=== PATIENT | female | born 1975 | race African-American/Black ===

== ENCOUNTER 2018-11-01 08:52 | Inpatient (IN) | payer BC, OTHER ==
[2018-10-31 17:37] VITALS: BMI 37.5
--- NOTE | 2018-11-01 08:43 | HP ---
History & Physical Update - History History: No Change (no change since visit on 10/26/18) - Physical Physical: No Change - Assessment Assessment: No Change - Plan Plan: No Change (no change since visit on)
[2018-11-01] MEDS ORDERED: ROPIVACAINE HCL 0.5% 30ML VIAL ONE (08:56)
[2018-11-01] MEDS ORDERED: MIDAZOLAM HCL 2 MG/2 ML SINGLE DOSE VIAL ONE ×2 (08:57)
[2018-11-01] MEDS ORDERED: CEFAZOLIN 2 GM/D5W 2 GM/50 ML ML IVPB ONE (09:15)
[2018-11-01] MEDS ORDERED: PHENAZOPYRIDINE HCL 100 MG TABLET (FP) PO ONE (09:15)
[2018-11-01 09:33] LABS: HEMATOCRIT 38.7 % (32.4-45.2); MCH 27.8 pg (25.7-33.7); MCHC 33.6 g/dl (32.0-36.0); MEAN CELL VOLUME 82.8 fl (80-96); MEAN PLT VOLUME 8.6 fl (7.5-11.1); PLATELET COUNT 382 K/MM3 (134-434); RBC 4.68 M/mm3 (3.60-5.2); RDW 15.6 % (11.6-15.6); WHITE BLOOD COUNT 4.5 K/mm3 (4.0-10.0)
[2018-11-01 09:39] LABS: HCG,QUALITATIVE URINE Negative
[2018-11-01 09:47] LABS: INR 1.06 (0.83-1.09); PROTHROMBIN TIME (PATIENT) 12.5 SEC (9.7-13.0)
[2018-11-01 09:57] LABS: ALK PHOS 88 U/L (45-117); ANION GAP 5 MMOL/L (8-16); BILIRUBIN,TOTAL 0.3 mg/dL (0.2-1); BLOOD UREA NITROGEN 15 mg/dL (7-18); CALCIUM 9.2 mg/dL (8.5-10.1); CHLORIDE 111 mmol/L (98-107); CO2 27 mmol/L (21-32); GLUCOSE,RANDOM 93 mg/dL (74-106); POTASSIUM 4.1 mmol/L (3.5-5.1); SGOT/AST 22 U/L (15-37); SGPT/ALT 26 U/L (13-61); SODIUM 142 mmol/L (136-145); TOT PROT 7.6 g/dl (6.4-8.2); URINE APPEARANCE CLEAR; URINE BILIRUBIN NEGATIVE (<2.0 mg/dL); URINE COLOR LTYELLOW; URINE GLUCOSE (UA) NEGATIVE (NEGATIVE); URINE KETONE NEGATIVE (NEGATIVE); URINE LEUK ESTERASE NEGATIVE (NEGATIVE); URINE NITRITE NEGATIVE (NEGATIVE); URINE PROTEIN NEGATIVE (NEGATIVE); URINE UROBILINOGEN NEGATIVE mg/dL (0.2-1.0)
[2018-11-01 10:11] LABS: EPI CELLS RARE /HPF (FEW); URINE MUCUS RARE
[2018-11-01] MEDS ORDERED: PHENAZOPYRIDINE HCL 100 MG TABLET (FP) ONE (10:16)
[2018-11-01] MEDS ORDERED: ceFAZolin SODIUM 1 GM VIAL ONE (10:16)
[2018-11-01] MEDS ORDERED: HEPARIN NA (PORCINE) 5,000 UNITS/ML 1ML VIAL ONE (10:17)
[2018-11-01] MEDS ORDERED: LIDOCAINE HCL/PF 2% SDV 5ML VIAL ONE (11:25)
[2018-11-01] MEDS ORDERED: fentaNYL CITRATE 250 MCG/5 ML VIAL ONE (11:26)
[2018-11-01] MEDS ORDERED: ROCURONIUM BROMIDE 50 MG/5 ML VIAL ONE ×2 (11:27→12:47)
[2018-11-01] MEDS ORDERED: PROPOFOL 20 ML ONE ×2 (11:27)
[2018-11-01] MEDS ORDERED: ceFAZolin SODIUM 1 GM VIAL IVPB ONE (11:35)
[2018-11-01] MEDS ORDERED: DEXAMETHASONE SOD PHOSPHATE 4 MG/1 ML VIAL ONE (11:55)
[2018-11-01] MEDS ORDERED: GLYCOPYRROLATE 0.2 MG/1 ML VIAL ONE (12:17)
[2018-11-01] MEDS ORDERED: NEOSTIGMINE METHYLSULFATE 0.5 MG/ML - 10 ML MDV ONE (12:17)
[2018-11-01] MEDS ORDERED: BENZOIN TINCTURE SWABSTICK TP ONE (14:05)
[2018-11-01] MEDS ORDERED: KETOROLAC TROMETHAMINE 30 MG/1 ML VIAL ONE (14:12)
[2018-11-01] MEDS ORDERED: DOCUSATE SODIUM 100 MG CAPSULE (FP) PO PRN (14:21)
[2018-11-01] MEDS ORDERED: BISACODYL 5 MG TABLET.DR (FP) PO PRN (14:21)
[2018-11-01] MEDS ORDERED: oxyCODONE HCL 5 MG TABLET PO PRN ×2 (14:21)
[2018-11-01] MEDS ORDERED: ONDANSETRON 4 MG/2 ML VIAL IVPUSH PRN (14:21)
[2018-11-01] MEDS ORDERED: SIMETHICONE 80 MG TAB.CHEW (FP) PO PRN (14:21)
[2018-11-01] MEDS: SODIUM CHLORIDE 1,000 ML IV SCH ×2 (14:35→18:07)
[2018-11-01] MEDS ORDERED: HYDROmorphone HCl 2 MG/ML VIAL IVPB PRN (14:39)
[2018-11-01] MEDS ORDERED: LACTATED RINGERS SOLUTION 1,000 ML IV SCH (14:45)
--- NOTE | 2018-11-01 14:45 | OP ---
Operative Note - Note: Operative Date: 11/01/18 Pre-Operative Diagnosis: leiomyoma uterus. pelvic pain Operation: Abdominal hysterectomy with partial cervical preservation, RSO, lysis of adhesions, LS, excision of keloid Post-Operative Diagnosis: Same as Pre-op Surgeon: Chilo Reyes Nut Threader: Meaghan Blanco Anesthesiologist/PLANT PROPAGATOR: Amy Carter Anesthesia: General, Local (tap block) Specimens Removed: uterus, right fallopian tube, right ovary, left fallopian tube, keloid Estimated Blood Loss (mls): 650 (255 returned Cell saver) Drains, Volume Out (mls): 150 (chand) Fluid Volume Replaced (mls): 1,800 Operative Report Dictated: Yes
--- NOTE | 2018-11-01 14:46 | SURG ---
Surgery Bag Machine Operator Helper Note Bag Machine Operator Helper: Meaghan Blanco PA-C Date of Service: 11/01/18 Diagnosis: leiomyoma uterus, pelvic pain Procedure: Abdominal hysterectomy with partial cervical preservation, RSO, lysis of adhesions, LS, excision of keloid I was present for the entirety of the operative procedure. For further detail, please refer to operative report. Visit type - Case Type Case Type: Scheduled - Emergency Emergency Visit: No - New patient This patient is new to me today: Yes Date on this admission: 11/01/18
[2018-11-01] MEDS: ACETAMINOPHEN 1000 MG/100 ML VIAL (NON FORMULARY) IVPB SCH ×2 (14:50→21:35)
[2018-11-01] MEDS ORDERED: ACETAMINOPHEN INJECTION 100 ML IVPB ONE (14:52)
[2018-11-01] MEDS ORDERED: KETOROLAC TROMETHAMINE 30 MG/1 ML VIAL IVPUSH SCH (15:00)
--- NOTE | 2018-11-01 15:31 | OP ---
DATE OF OPERATION: PREOPERATIVE DIAGNOSES: 1. Large, growing, symptomatic, uterine leiomyomata. 2. Pelvic pain. 3. Suspecting adhesions and scar tissue. POSTOPERATIVE DIAGNOSES: 1. Large, growing, symptomatic, uterine leiomyomata. 2. Pelvic pain. 3. Suspecting adhesions and scar tissue, confirmed. 4. Endometriosis. SURGEON: Chilo Reyes MD FABRIC SEPARATOR OPERATOR: BRI [place] ANESTHESIA: General, TAP block. OPERATION: 1. Abdominal hysterectomy with partial cervical preservation. 2. Right salpingo-oophorectomy. 3. Left salpingectomy. 4. Lysis of extensive adhesions and old scar tissue. 5. Excision of keloid. INTRAOPERATIVE CONSULTATION: Abhay Luu MD, Surgery. PROCEDURE AND FINDINGS: Under general anesthesia in dorsal supine position, patient was prepped and draped in normal fashion. Old scar with keloid was excised in a wedge-like fashion. Cell Saver was connected with suction. After thick subcutaneous layer was divided, fascia was entered transversely and dissected recti muscles. Recti muscles were , and peritoneum was opened in the vertical fashion. Uterus was enlarged with multiple leiomyomata completely adhered posterior to pelvic wall and sigmoid colon. Multiple adhesions were also connecting uterus to anterior abdominal wall and laterally. Right ovary was difficult to identify, damage by endometriotic lesion and scar tissue and plaster against anterolateral aspect of uterus. Left ovary was essentially normal after appropriate dissection. Left fallopian tube was distorted and attenuated. Bladder flap was adhered very high on uterine fundus. Uterus itself, although it was smaller than appeared clinically , was about 16 weeks. Adhesions were then gradually lysed in a very careful fashion reducing various aspects of the uterus until it was freed completely. Right ovary could not be salvaged. Left ovary was dissected free. Sigmoid colon was dissected off the uterus. Left-sided anterior myoma was removed in the normal myomectomy fashion to decrease size of the uterus and improve the axis. Bladder flap was dissected, and anterior cul-de-sac was freed. Dissection was extremely tedious and performed in a careful, painstaking fashion. Scarp dissection using Metzenbaum scissors, Bovie , and LigaSure were used throughout the course of dissection. Right infundibulopelvic ligament was identified and noted to be elongated. Ureter was not identified in any proximity. The ligament was divided using LigaSure. Right uterine vessel plexus was then skeletonized and divided using LigaSure. Subsequent additional Vicryl 0 suture was used for reinforcement. Uteroovarian ligament was divided on the left side and following the prolonged dissection, left uterine vessel plexus was identified and divided using LigaSure as well. It was also reinforced with Vicryl 0 suture. Cervix was very long, and it was partly dissected. Cervix was divided in the middle and distal one-half was preserved. Cervical stump was secured with interrupted [id number] 0 Vicryl sutures. After uterus with right adnexa and part of the cervix was removed, pelvis was examined. Distal part of left fallopian tube was identified and dissected using LigaSure device. Ovary was preserved as per patient's wishes. Dr. Luu was asked to check the integrity of the bowel. He performed thorough exploration and found the bowel intact. Pelvis was lavaged at that point, and thorough hemostasis was secured. With count reported as correct, abdomen was closed in layers. The peritoneum was closed with continuous running PDS suture, fascia with continuous running Vicryl 1 suture and subcutaneous tissue was approximated with interrupted sutures, and skin was closed in the subcuticular fashion using Monocryl 3-0. Sterile dressings were applied. A Cell Saver was used throughout the whole surgery. Total blood loss was 650 mL , and 255 mL was returned to the patient. Urine was clear in the Mccray catheter bag. Patient withstood the surgery very well. She remained stable throughout the whole case. Patient was awakened and transferred to PACU in stable condition. MD ALEXIS JAFFE/[id number] MTDD
[2018-11-01] MEDS: INSULIN SLIDING SCALE (NOVOLOG) 1 VIAL SQ SCH (16:49)
[2018-11-01] MEDS: KETOROLAC TROMETHAMINE 30 MG/1 ML VIAL IVPUSH SCH ×2 (17:54→21:00)
[2018-11-01] MEDS ORDERED: CEFAZOLIN 1 GM/D5W 1 GM/50 ML BAG IVPB SCH ×2 (18:00→20:30)
[2018-11-01] MEDS ORDERED: ceFAZolin 2 GRAM PREMIX BAG IVPB SCH (18:00)
[2018-11-01] MEDS: CEFAZOLIN 2 GM/D5W 2 GM/50 ML ML IVPB SCH (18:07)
[2018-11-02] MEDS: CEFAZOLIN 2 GM/D5W 2 GM/50 ML ML IVPB SCH ×2 (02:07→09:40)
[2018-11-02] MEDS: ACETAMINOPHEN 1000 MG/100 ML VIAL (NON FORMULARY) IVPB SCH ×2 (06:45→08:54)
[2018-11-02] MEDS: KETOROLAC TROMETHAMINE 30 MG/1 ML VIAL IVPUSH SCH ×4 (06:45→17:49)
[2018-11-02] MEDS: metFORMIN HCL 500 MG TABLET (FP) PO SCH (06:48)
[2018-11-02] MEDS: INSULIN SLIDING SCALE (NOVOLOG) 1 VIAL SQ SCH ×3 (06:48→16:45)
[2018-11-02 08:21] LABS: HEMATOCRIT 32.4 % (32.4-45.2); HEMOGLOBIN 10.9 GM/dL (10.7-15.3); MCH 27.3 pg (25.7-33.7); MCHC 33.7 g/dl (32.0-36.0); MEAN CELL VOLUME 81.2 fl (80-96); MEAN PLT VOLUME 8.8 fl (7.5-11.1); PLATELET COUNT 299 K/MM3 (134-434); RDW 15.7 % (11.6-15.6); WHITE BLOOD COUNT 7.4 K/mm3 (4.0-10.0)
[2018-11-02 08:59] LABS: ANION GAP 7 MMOL/L (8-16); BLOOD UREA NITROGEN 10 mg/dL (7-18); CHLORIDE 106 mmol/L (98-107); CO2 26 mmol/L (21-32); CREATININE 0.9 mg/dL (0.55-1.3); GLUCOSE,RANDOM 104 mg/dL (74-106); POTASSIUM 3.7 mmol/L (3.5-5.1); SODIUM 138 mmol/L (136-145)
--- NOTE | 2018-11-02 09:32 | PN ---
Progress Note (short form) - Note Progress Note: Surgery POD #1 abdominal hysterectomy Right orphorectomy and b/l salpingectomy seen and examined at bedside. Patient states she did not get out of bed despite having an order to get OOB POD#0. Her Mccray was removed this morning but she has not voided. She is tolerating clears and passing gas. Her pain is controlled and she denies any CP, N/V fever or chills. Vital Signs Temp 99.1 F 11/02/18 06:00 Pulse 62 11/02/18 06:00 Resp 20 11/02/18 06:00 BP 146/90 11/02/18 06:00 Pulse Ox 99 11/01/18 21:00 Intake & Output 11/01/18 11/01/18 11/02/18 11:59 23:59 11:59 Intake Total 2000 Output Total 2450 1000 Balance -450 -1000 Intake: IV 1750 Normal Saline - 1,000 ml 1375 @ 125 mls/hr IV ASDIR DANIELA Rx#:[id number] Blood Product 250 Output: Urine 1800 1000 Mccray 500 1000 Estimated Blood Loss 650 Other: Voiding Method Indwelling Catheter CBC, BMP 02 07:08 11/02/18 07:08 PE: A&Ox3, NAD Unlabored resp on RA ABD: Obese, soft, and TTP in lower quadrants appropriate to status. Incision c/d /i with steri strips and surrounding tissue intact, no erythema or evidence of collection or d/c. LE compartments soft, supple and non-tender to palpation with +2 DP pulses, NVID Problem List - Problems (1) S/P abdominal hysterectomy and right salpingo-oophorectomy Assessment/Plan: POD #1 doing well but has not been out of bed. 1) Encourage OOB and ambulating and up to chair for meals. 2) DVT prophylaxis with scds, early ambulation and lovenox 3) Encourage IS 4) Surgery to follow Evaluation and plan discussed with Dr Reyes Code(s): Z90.710 - ACQUIRED ABSENCE OF BOTH CERVIX AND UTERUS; Z90.721 - ACQUIRED ABSENCE OF OVARIES, UNILATERAL; Z90.79 - ACQUIRED ABSENCE OF OTHER GENITAL ORGAN(S)
--- NOTE | 2018-11-02 09:37 | PN ---
Progress Note (short form) - Note Progress Note: POST OP DAY#21.S/P MARY BETH UNDER GA UNEVENTFUL.PATIENT STABLE AND C/O SOME PAIN FOR WHICH SHE IS ON MEDICATION.NO ANY ANESTHESIA RELATED PROBLEM.PATIENT DC FROM THE ANESTHESIA. CARE
[2018-11-02] MEDS ORDERED: ENOXAPARIN NA (PORCINE) 40 MG/0.4 ML DISP.SYRIN SQ ONE (10:00)
[2018-11-02] MEDS ORDERED: ENOXAPARIN NA (PORCINE) 40 MG/0.4 ML DISP.SYRIN SQ SCH (10:00)
--- NOTE | 2018-11-02 16:53 | PN ---
Progress Note (short form) - Note Progress Note: Patient is doing very well postoperatively. Passing flatus. Wound is clean and dry. Labs normal. Surgery fully explained. Plans made for the future.
[2018-11-03] MEDS: KETOROLAC TROMETHAMINE 30 MG/1 ML VIAL IVPUSH SCH ×2 (01:53→09:10)
[2018-11-03] MEDS: INSULIN SLIDING SCALE (NOVOLOG) 1 VIAL SQ SCH ×2 (07:32→11:03)
[2018-11-03] MEDS: metFORMIN HCL 500 MG TABLET (FP) PO SCH (07:33)
--- NOTE | 2018-11-03 09:15 | DS ---
"Physical Exam: SUBJECTIVE: POD #2 abdominal hysterectomy patient seen and examined at the bedside with no complaints. She is ambulating, tolerating her diet, voiding and passing gas. Her pain is controlled and she denies any CP, SOB, N/V/D, Fever, or chills. OBJECTIVE: Vital Signs Period Temp Pulse Resp BP Sys/Ny Pulse Ox Last 24 Hr 98.4 F-99.2 F 66-76 18-20 133-146/57-85 PHYSICAL EXAM GENERAL: The patient is awake, alert, and fully oriented, in no acute distress. HEAD: Normal with no signs of trauma. EYES: sclera anicteric, conjunctiva clear. NECK: Trachea midline, full range of motion, LUNGS: no auditory wheezes, no accessory muscle use. ABDOMEN: Obese, Soft, nondistended, with mild TTP over lower quadrants appropriate to status. no guarding, no rebound, no masses. Dressing C/D/I with no evidence of tracking erythema or d/c. EXTREMITIES: LE compartments soft, supple and non-tender to palpation.2+ pulses , warm, well-perfused, no edema. NEUROLOGICAL: Cranial nerves II through XII grossly intact. Normal speech, gait not observed. PSYCH: Normal mood, normal affect. SKIN: Warm, dry, normal turgor, no rashes or lesions noted. LABS Laboratory Results - last 24 hr 02/21/19 // 11:07 16:44 POC Glucometer 113 94 CBC, BMP 02// 07:08 11/02/ 07:08 HOSPITAL COURSE: Date of Admission:11/01/18 The patient was admitted to the Med-Surg Unit after an elective abdominal hysterectomy, b/l salpingectomy. Now, s/p abdominal hysterectomy, b/l salpingectomy and right oorphorectomy. POD#1, the patient ambulated the hallways with assistance. Narcotic and non- narcotic pain management control was achieved with an oral and IV approach. Elif -operative IV ABX were administered. DVT prophylaxis was achieved with SCDs, early ambulation and SQ lovenox. The patient ambulated, tolerated her diet and no services were recommended upon discharge. Narcotic scripts were checked with [facility] DINKEY ENGINE FIRER prior to escibe. The discharge instructions and an oral pain management plan were reviewed with the patient. All questions answered. Above plan discussed with Dr. Reyes and agreed. Date of Discharge: 11/03/18 Minutes to complete discharge: 25 Discharge Summary Reason For Visit: UTERINE FIBROIDS; PELVIC PAIN Current Active Problems S/P abdominal hysterectomy and right salpingo-oophorectomy (Acute) Condition: Good - Instructions Diet, Activity, Other Instructions: Dr. Reyes SOCIAL SECURITY BENEFITS INTERVIEWER discharge instructions Physical activity Resume your normal everyday activity as tolerated no heavy lifting or exercise until seen by your surgeon. You may walk unlimited marisela of and climb stairs. You may resume driving the car when you feel safe and comfortable behind the wheel. No sexual activity as instructed by Dr. Reyes. Wound care If you have a bandage, leave it on, and keep dry for 1 day. After that time discard the outer bandage. If they are tapes on the skin under the out of bandage leave them in place. They will peel off in the next 7 to 10 days. Do Not Peel them off. You may shower 1 days after surgery but do not bathe. If there are tapes present on the skin, you may shower over them. Do not apply ointment or lotion to incision. Diet There are no dietary restrictions. Eat healthy, high-fiber foods. Drink 6 to 8 glasses of liquid each day. This will assist in keeping your bowels are regular. Pain management You may take Tylenol or acetaminophen or Ibuprofen (for example, Motrin, Advil etc.) from my pain prescription medication is ordered should be taken as prescribed for moderate to severe pain. Call Dr. Reyes for any of the following: Severe pain not relieved by medication Fever of 101 or higher Excessive bleeding or drainage on dressing Inability to urinate If you experience any chest pain or shortness of breath please seek emergency treatment immediately. [place] Prescription Monitoring Program report was requested by: Meaghan Adorno | Reference #: [id number] Call the office at [phone] for an appointment. Disposition: HOME - Home Medications Comprehensive Discharge Medication List: Ambulatory Orders Metformin HCl 500 mg PO DAILY 10/31/18 Problem List - Problems (1) S/P abdominal hysterectomy and right salpingo-oophorectomy Assessment/Plan: POD #2 doing well 1) Encourage OOB and ambulating and up to chair for meals. 2) Keep incision clean and dry 3) D/c home today 4) f/u with Dr Reyes as scheduled Evaluation and plan discussed with Dr Reyes Code(s): Z90.710 - ACQUIRED ABSENCE OF BOTH CERVIX AND UTERUS; Z90.721 - ACQUIRED ABSENCE OF OVARIES, UNILATERAL; Z90.79 - ACQUIRED ABSENCE OF OTHER GENITAL ORGAN(S) This patient is new to me today: Yes Date on this admission: 11/03/18 Emergency Visit: No Critical Care patient: No - Discharge Referral Referred to [facility] No"
[2018-11-03 10:39] VITALS: BP 130/58; PULSE 60; TEMP 98.2
--- NOTE | 2018-11-03 17:35 | PATH ---
Surgical Pathology Report Patient Name: ROSALIND JEWELL Med. Rec. #: [id number] /Age/Gender: 1975 (Age: 43) / F Account: [id number] Location: [facility] MED/SURG Taken: 11/01/2018 Received: 11/02/2018 Reported: 11/03/2018 Physicians: Chilo Reyes MD Specimen(s) Received A: KELOID B: UTERUS C: PARTIAL LEFT FALLOPIAN TUBE Clinical History Abdominal hysterectomy Final Diagnosis A. KELOID, EXCISION: DERMAL SCAR WITH KELOIDAL-TYPE COLLAGEN. B. UTERUS, ABDOMINAL HYSTERECTOMY: 643 G UTERUS LEIOMYOMA(TA) WITH DYSTROPHIC CALCIFICATION AND DEGENERATIVE CHANGES. LATE PROLIFERATIVE ENDOMETRIUM TO EARLY SECRETORY ENDOMETRIUM. UNREMARKABLE ENDOCERVIX. C. FALLOPIAN TUBE, LEFT, EXCISION: PORTION OF FALLOPIAN TUBE WITH VASCULAR CONGESTION AND FOCAL EDEMA. Electronically Signed Celestina Rosado M.D. Gross Description A. Received in formalin labeled "keloid," is an 11.5 x 0.5 cm al, elongated portion of skin excised to a depth of 1.8 cm. The epidermal surface displays a central, linear, healed scar. Flosser sections are submitted in one cassette. B. Received in formalin labeled "uterus," is a 643 g supracervically amputated uterus with no attached adnexa. The specimen measures 11.0 cm from superior to inferior, 10.5 cm from anterior to posterior and 9.5 cm from left to right. The serosa is al-brown with adhesions and focal bulging subserosal nodules. The endometrial cavity measures 7 cm in length and 2.6 cm from cornu to cornu. The endometrium is al metz and measures up to 0.3 cm in thickness. The myometrium displays abundant large, calcified intramural nodules, measuring up to 5.3 cm in greatest dimension. The remaining myometrium is al-pink and measures up to 5.5 cm in thickness. Separately received within the same container is a 36 g, 5.0 x 3.7 x 3.0 cm nodule, consistent with a fibroid. The cut surface of the fibroid is al and rubbery with whorled architecture. No areas of hemorrhage or necrosis are identified. Flosser sections are submitted in 12 cassettes as follows: 1-cervical stump margin of resection; 3-7-nftmjpmlygfycs; 6-subserosal nodules; 9-0-hsicpircj intramural nodules; 8-55-awjyqgtmgr intramural nodules; 66-51-umcukncjsl received fibroid. C. Received in formalin labeled "partial left fallopian tube," is a 1.5 x 1.1 x 0.6 cm portion of fimbria. The specimen is bisected and entirely submitted in one cassette. 11/02/201811/02/2018
== END 2018-11-03 14:27 | disposition home or self-care (01) | DRG 743 ==
LOC: JSAMEDAYSX 08:52 → EDSTATUS 13:00 → J8W 17:13
PROVIDERS: ADMIT Specialist; ATTEND Specialist
PROC: 0UB60ZZ Excision of Left Fallopian Tube, Open Approach (ICD-10-PCS; 2018-11-01)
PROC: 0UB00ZZ Excision of Right Ovary, Open Approach (ICD-10-PCS; 2018-11-01)
PROC: 0UB50ZZ Excision of Right Fallopian Tube, Open Approach (ICD-10-PCS; 2018-11-01)
PROC: 0DNW0ZZ Release Peritoneum, Open Approach (ICD-10-PCS; 2018-11-01)
PROC: 0HB9XZZ Excision of Perineum Skin, External Approach (ICD-10-PCS; 2018-11-01)
PROC: 0UT90ZZ Resection of Uterus, Open Approach (ICD-10-PCS; principal; 2018-11-01 10:30)
DX: D25.9 Leiomyoma of uterus, unspecified (principal); K66.0 Peritoneal adhesions (postprocedural) (postinfection); N80.9 Endometriosis, unspecified
CPT/HCPCS: 36415; 80048; 80053; 81003; 81015; 82962; 84703; 85027; 85610; 86891; 88302-TC; 88304-TC; 88307-TC; 94010; 94760; J0131; J1644; J7030